=== PATIENT | male | born 1945 | race Caucasian/White ===

== ENCOUNTER → 2016-10-08 | Outpatient (CLI) | payer MEDICARE ==
[2016-10-08 11:19] LABS: Blood Urea Nitrogen 33 mg/dL (9-20); Non-African American GFR(MDRD) >60 (>60 ml/min/1.73 sqM)
--- NOTE | 2016-10-08 12:39 | CT ---
EXAMINATION TYPE: CT brain wo/w con DATE OF EXAM: 10/08/2016 12:01 PM COMPARISON: NONE HISTORY: Vision changes CT DLP: 2351 mGycm Automated Exposure Control for Dose Reduction was Utilized. TECHNIQUE: CT scan of the head is performed without and with without and with IV Contrast, patient in jected with 100 ml mL of Omnipaque 300. FINDINGS: Noncontrast images show no acute intracranial hemorrhage or midline shift. The ventricles and sulci are within normal limits in size. Postcontrast images show no suspicious enhancing intrapa renchymal mass. Suprasellar cistern is maintained. The globes are intact bilaterally. There are small mucous retention cysts or polyps in inferior bilateral maxillary sinuses, left greater than right. IMPRESSION: No significant finding is seen to account for patient's symptoms.
== END | disposition home or self-care (01) ==
LOC: RADCTMAIN 10:44
PROVIDERS: ATTEND Physician Assistant Medical
DX: H53.123 Transient visual loss, bilateral (principal)
CPT/HCPCS: 82565; 84520; 70470; 36415; Q9967

== ENCOUNTER → 2016-12-31 | Outpatient (CLI) | payer MEDICARE ==
--- NOTE | 2016-12-31 16:03 | XR ---
EXAMINATION TYPE: XR hand complete RT DATE OF EXAM: 12/31/2016 3:58 PM CLINICAL HISTORY: Infected laceration injury with pain and redness. TECHNIQUE: Frontal, lateral and oblique images of the right hand are obtained. COMPARISON: None. FINDINGS: There is no acute fracture/dislocation evident in the right hand. There is some joint spac e loss and mild spurring fifth PIP joint. There is mild spurring second and third metacarpophalangeal joints. Accessory sesamoids are present. There is old fracture deformity of ulnar styloid. The overl pat soft tissue appears unremarkable without radiodense foreign body seen. Soft tissue calcification volar surface proximal wrist is noted on lateral view. No suspicious cortical destruction or periost eal reaction is seen. IMPRESSION: There is no obvious suspicious radiodense soft tissue foreign body.
== END | disposition home or self-care (01) ==
LOC: RADXRMAIN 15:46
PROVIDERS: ATTEND Internal Medicine Critical Care Medicine
DX: S61.411A Laceration without foreign body of right hand, initial encounter (principal); X58.XXXA Exposure to other specified factors, initial encounter
CPT/HCPCS: 99213

== ENCOUNTER → 2019-03-14 | Outpatient (CLI) | payer MEDICARE ==
--- NOTE | 2019-03-14 13:57 | MR ---
EXAMINATION TYPE: MR lumbar spine wo/w con DATE OF EXAM: 03/14/2019 COMPARISON: 08/13/2015 HISTORY: Low back pain CONTRAST: 7.5 mL intravenous Gadavist. TECHNIQUE: Multiplanar, multisequence images of the lumbar spine were acquired. FINDINGS: Cord terminates at the L1 level. There is susceptibility artifact from L5-S1 pedicle screw s are evident. L5-S1: No significant disc bulge or disc herniation. No spinal canal stenosis. No foraminal stenosi s. L4-L5: Minimal disc bulge may be present with mild anterior thecal sac contact. No stenosis is presen t. No foraminal stenosis. L3-L4: Mild disc bulging is anterior thecal sac contact. No spinal canal stenosis. No foraminal rosina nosis. L2-L3: Mild disc bulging is anterior thecal sac contact. No spinal canal stenosis. No foraminal rosina nosis. L1-L2: No significant disc bulge or disc herniation. No spinal canal stenosis. No foraminal stenosi s. T12-L1: No significant disc bulge or disc herniation. No spinal canal stenosis. No foraminal stenos is. Neural foramen are patent.. No abnormal enhancement. No significant interval changes evident. IMPRESSION: 1. Mild disc bulging L4-5, L3-4, L2-3 with mild anterior thecal sac contact. No stenosis is evident. 2. Postsurgical changes L5-S1 right pedicle screws 3. Exam stable from 2014
== END | disposition home or self-care (01) ==
LOC: RADMRIMAIN 11:14
PROVIDERS: ATTEND Physical Medicine & Rehabilitation
DX: M51.26 Other intervertebral disc displacement, lumbar region (principal); Z98.890 Other specified postprocedural states
CPT/HCPCS: 72158; A9585

== ENCOUNTER 2019-03-27 10:10 | Day surgery (SDC) | payer MEDICARE ==
[2019-03-25 12:44] VITALS: BMI 25.0
[~2019-03-27 10:10] MED LIST: LACTATED RINGERS 1,000 ML IV SCH; LIDOCAINE 1% 20 ML VIAL (10MG/ML) FOR IV START INTRADERMA PRN
[2019-03-27 10:33] VITALS: TEMP 97.8
[2019-03-27] MEDS ORDERED: PROPOFOL 10 MG/ML 20 ML VIAL IV ONE (11:07)
--- NOTE | 2019-03-27 11:24 | P.PCN ---
Date of Procedure: 03/27/19 Procedure(s) Performed: BRIEF HISTORY: Patient is a 73-year-old pleasant white male, scheduled for an elective colonoscopy as a part of evaluation of prior history of colon polyps. Last colonoscopy was 5 years ago. PROCEDURE PERFORMED: Colonoscopy. PREOPERATIVE DIAGNOSIS: History of colon polyps. IV sedation per Anesthesia. PROCEDURE: After informed consent was obtained, the patient, was brought into the endoscopy unit. IV sedation was administered by Anesthesia under continuous monitoring. Digital rectal examination was normal. Initially the Olympus CF-160 flexible video colonoscope was then inserted in the rectum, gradually advanced into the cecum without any difficulty. Careful examination was performed as the scope was gradually being withdrawn. Ileocecal valve and the appendiceal orifice were visualized and appeared normal. Prep was excellent. Mucosa of the cecum, ascending colon, transverse colon, descending colon, sigmoid colon, and rectum appeared normal. Scattered sigmoid diverticulosis seen. Retroflexion was performed in the rectum and no lesions were seen. The patient tolerated the procedure well. IMPRESSION: Normal-appearing colon from rectum to cecum with no evidence of colorectal neoplasia. Scattered sigmoid diverticulosis. RECOMMENDATIONS: Findings of this examination were discussed with the patient as well as his family. He was advised to have a repeat surveillance colonoscopy in 5 years from now because of the prior history of colon polyps..
[2019-03-27 11:27] VITALS: RESP 16
[2019-03-27 11:41] VITALS: BP 119/65; PULSE 68
== END 2019-03-27 12:05 | disposition home or self-care (01) ==
LOC: ORWHC2ENDO 10:10
PROVIDERS: ATTEND Internal Medicine Gastroenterology
DX: Z12.11 Encounter for screening for malignant neoplasm of colon (principal); K57.30 Diverticulosis of large intestine without perforation or abscess without bleeding; N40.0 Benign prostatic hyperplasia without lower urinary tract symptoms; I10 Essential (primary) hypertension; Z86.010 Personal history of colon polyps; Z88.1 Allergy status to other antibiotic agents; Z79.899 Other long term (current) drug therapy
CPT/HCPCS: J2704; G0105; 45378

== ENCOUNTER 2019-10-20 08:09 | Observation (INO) | payer MEDICARE ==
[2019-10-20] MEDS ORDERED: KETOROLAC 30 MG/ML 1 ML VIAL IVP STA (08:32)
[2019-10-20] MEDS ORDERED: SODIUM CHLORIDE 0.9% 1,000 ML IV STA (08:32)
--- NOTE | 2019-10-20 08:35 | ED ---
General Adult HPI - General Source: patient, family, RN notes reviewed Mode of arrival: ambulatory <Ronnie Dunham - Last Filed: 10/20/19 11:10> <Julieta Figueroa - Last Filed: 10/22/19 19:31> - General Chief complaint: Abdominal Pain Stated complaint: right abdominal pain Time Seen by Provider: 10/20/19 08:21 - History of Present Illness Initial comments: 74-year-old male with a past medical history hypertension, prostate cancer presents to the emergency department for a chief complaint of abdominal pain. Patient states he has had right lower quadrant abdominal pain for the past 3 days. Patient states he thinks he could be constipated. States he normally has diarrhea but started taking a supplement for urinary retention and it made his stools harder. Patient states on Saturday he started to take magnesium citrate to try to have a bowel movement. States his last bowel movement was Saturday morning. Patient denies fevers or chills. Denies nausea vomiting but does admit to decreased appetite. States he has not been eating or drinking as much as normal.Patient has no other complaints at this time including shortness of breath, chest pain, nausea or vomiting, headache, or visual changes. (Ronnie Dunham) - Related Data Home Medications Medication Instructions Recorded Confirmed Ibuprofen [Motrin] 800 mg PO Q8H PRN 03/25/19 10/20/19 Losartan Potassium 100 mg PO DAILY 03/25/19 10/20/19 Hydrochlorothiazide [Hydrodiuril] 50 mg PO DAILY 10/20/19 10/20/19 Terazosin HCl 10 mg PO HS 10/20/19 10/20/19 Previous Rx's Medication Instructions Recorded Docusate [Colace] 100 mg PO BID #30 capsule 10/21/19 Hydrocodone/Acetaminophen [[place] 1 tab PO Q6HR PRN #10 tab 10/21/19 5-325] Allergies Allergy/AdvReac Type Severity Reaction Status Date / Time azithromycin Allergy Rash/Hives Verified 10/20/19 13:01 [From Zithromax Z-Dewayne] Review of Systems ROS Other: All systems not noted in ROS Statement are negative. <Ronnie Dunham - Last Filed: 10/20/19 11:10> ROS Other: All systems not noted in ROS Statement are negative. <Julieta Figueroa - Last Filed: 10/22/19 19:31> ROS Statement: Those systems with pertinent positive or pertinent negative responses have been documented in the HPI. Past Medical History Past Medical History: Hypertension, Prostate Disorder History of Any Multi-Drug Resistant Organisms: None Reported Past Surgical History: Back Surgery, Hernia Repair, Orthopedic Surgery Additional Past Surgical History / Comment(s): EPIDURAL SHOTS IN BACK AND NECK. COLONOSCOPY. REPAIR DETACHED RETINA > 10 YEARS AGO. LT FOOT SX Past Anesthesia/Blood Transfusion Reactions: No Reported Reaction Past Psychological History: No Psychological Hx Reported Smoking Status: Former smoker - Past Family History Mother Family Medical History: No Reported History <Ronnie Dunham P - Last Filed: 10/20/19 11:10> General Exam General appearance: alert, in no apparent distress Head exam: Present: atraumatic, normocephalic, normal inspection Eye exam: Present: normal appearance, PERRL, EOMI. Absent: scleral icterus, conjunctival injection, periorbital swelling ENT exam: Present: normal exam, mucous membranes moist Neck exam: Present: normal inspection, full ROM. Absent: tenderness, meningismus, lymphadenopathy Respiratory exam: Present: normal lung sounds bilaterally. Absent: respiratory distress, wheezes, rales, rhonchi, stridor Cardiovascular Exam: Present: regular rate, normal rhythm, normal heart sounds. Absent: systolic murmur, diastolic murmur, rubs, gallop, clicks GI/Abdominal exam: Present: soft, tenderness (Right lower quadrant abdominal tenderness. No significant left sided abdominal tenderness. No epigastric or right upper quadrant tenderness.), normal bowel sounds. Absent: distended, guarding, rebound, rigid <Ronnie Dunham P - Last Filed: 10/20/19 11:10> Course Vital Signs 10/20/19 10/20/19 10/20/19 08:18 08:54 09:00 Temperature 97.9 F Pulse Rate 87 70 69 Respiratory 16 18 18 Rate Blood Pressure 126/74 136/76 136/76 O2 Sat by Pulse 97 93 L 96 Oximetry 10/20/19 10/20/19 10/20/19 09:30 10:00 10:30 Temperature Pulse Rate 67 68 70 Respiratory 18 18 18 Rate Blood Pressure 131/75 129/81 142/77 O2 Sat by Pulse 96 98 97 Oximetry Medical Decision Making - Lab Data Result diagrams: 10/20/19 08:39 10/20/19 08:39 <Ronnie Dunham - Last Filed: 10/20/19 11:10> - Lab Data Result diagrams: 10/20/19 08:39 10/20/19 08:39 <Julieta Figueroa - Last Filed: 10/22/19 19:31> - Medical Decision Making Vitals are stable. Patient is afebrile. CBC does show a leukocytosis of 11.6. Left shift. CMP unremarkable however there is mild hyponatremia noted. Patient given normal saline. CT was obtained with contrast which does show a thickened appendix. Findings compatible with acute or possibly subacute appendicitis. There are also incidental findings of 5.5 cm cyst on the left kidney. Patient and his are requesting to see Dr. Myers specifically. Dr. Sebastian did speak with Dr. Myers who does except this consult. He requests Zosyn and nothing by mouth diet. (Ronnie Dunham) I was available for consultation in the emergency department. The history and physical exam were done by the midlevel provider. I was consulted for this patients care. I reviewed the case with the midlevel provider and based on their presentation of the patient, I agree with the assessment, medical decision making and plan of care as documented. I evaluated the patient myself. He presents with rlq pain and tenderness on exam. Ct demonstrates appendicitis. Patient requesting Dr. myers. I called Dr. myers who accepted the consult. Patient made NPO and placed on antibiotics. He is awaiting surgery this afternoon. Chart was dictated using [employer] dictation software. Attempts were made to correct any dictation errors however some typographical errors may persist. (Julieta Figueroa) - Lab Data Lab Results 10/20/19 10/20/19 10/20/19 Range/Units 08:39 08:39 08:39 WBC 11.6 H (3.8-10.6) k/uL RBC 4.24 L (4.30-5.90) m/uL Hgb 13.9 (13.0-17.5) gm/dL Hct 39.4 (39.0-53.0) % MCV 92.7 (80.0-100.0) fL MCH 32.6 (25.0-35.0) pg MCHC 35.2 (31.0-37.0) g/dL RDW 11.8 (11.5-15.5) % Plt Count 180 (150-450) k/uL Neutrophils % 85 % Lymphocytes % 9 % Monocytes % 4 % Eosinophils % 1 % Basophils % 0 % Neutrophils # 9.9 H (1.3-7.7) k/uL Lymphocytes # 1.0 (1.0-4.8) k/uL Monocytes # 0.5 (0-1.0) k/uL Eosinophils # 0.1 (0-0.7) k/uL Basophils # 0.0 (0-0.2) k/uL Sodium 131 L (137-145) mmol/L Potassium 3.7 (3.5-5.1) mmol/L Chloride 95 L (98-107) mmol/L Carbon Dioxide 28 (22-30) mmol/L Anion Gap 8 mmol/L BUN 17 (9-20) mg/dL Creatinine 0.95 (0.66-1.25) mg/dL Est GFR (CKD-EPI)AfAm >90 (>60 ml/min/1.73 sqM) Est GFR (CKD-EPI)NonAf 78 (>60 ml/min/1.73 sqM) Glucose 121 H (74-99) mg/dL Plasma Lactic Acid Mahin 1.2 (0.7-2.0) mmol/L Calcium 9.2 (8.4-10.2) mg/dL Total Bilirubin 1.6 H (0.2-1.3) mg/dL AST 27 (17-59) U/L ALT 17 (4-49) U/L Alkaline Phosphatase 74 (38-126) U/L Total Protein 6.6 (6.3-8.2) g/dL Albumin 4.1 (3.5-5.0) g/dL Amylase 72 (30-110) U/L Lipase 135 (23-300) U/L Urine Color Urine Appearance (Clear) Urine pH (5.0-8.0) Ur Specific [place] (1.001-1.035) Urine Protein (Negative) Urine Glucose (UA) (Negative) Urine Ketones (Negative) Urine Blood (Negative) Urine Nitrite (Negative) Urine Bilirubin (Negative) Urine Urobilinogen (<2.0) mg/dL Ur Leukocyte Esterase (Negative) 10/20/19 Range/Units 08:39 WBC (3.8-10.6) k/uL RBC (4.30-5.90) m/uL Hgb (13.0-17.5) gm/dL Hct (39.0-53.0) % MCV (80.0-100.0) fL MCH (25.0-35.0) pg MCHC (31.0-37.0) g/dL RDW (11.5-15.5) % Plt Count (150-450) k/uL Neutrophils % % Lymphocytes % % Monocytes % % Eosinophils % % Basophils % % Neutrophils # (1.3-7.7) k/uL Lymphocytes # (1.0-4.8) k/uL Monocytes # (0-1.0) k/uL Eosinophils # (0-0.7) k/uL Basophils # (0-0.2) k/uL Sodium (137-145) mmol/L Potassium (3.5-5.1) mmol/L Chloride (98-107) mmol/L Carbon Dioxide (22-30) mmol/L Anion Gap mmol/L BUN (9-20) mg/dL Creatinine (0.66-1.25) mg/dL Est GFR (CKD-EPI)AfAm (>60 ml/min/1.73 sqM) Est GFR (CKD-EPI)NonAf (>60 ml/min/1.73 sqM) Glucose (74-99) mg/dL Plasma Lactic Acid Mahin (0.7-2.0) mmol/L Calcium (8.4-10.2) mg/dL Total Bilirubin (0.2-1.3) mg/dL AST (17-59) U/L ALT (4-49) U/L Alkaline Phosphatase (38-126) U/L Total Protein (6.3-8.2) g/dL Albumin (3.5-5.0) g/dL Amylase (30-110) U/L Lipase (23-300) U/L Urine Color Yellow Urine Appearance Clear (Clear) Urine pH 8.0 (5.0-8.0) Ur Specific [place] 1.005 (1.001-1.035) Urine Protein Negative (Negative) Urine Glucose (UA) Negative (Negative) Urine Ketones Negative (Negative) Urine Blood Negative (Negative) Urine Nitrite Negative (Negative) Urine Bilirubin Negative (Negative) Urine Urobilinogen <2.0 (<2.0) mg/dL Ur Leukocyte Esterase Negative (Negative) Disposition Is patient prescribed a controlled substance at d/c from ED?: No Time of Disposition: 11:10 <Ronnie Dunham P - Last Filed: 10/20/19 11:10> <Julieta Figueroa - Last Filed: 10/22/19 19:31> Clinical Impression: Appendicitis Disposition: ADMITTED IP TO THIS HOSP Condition: Stable
[2019-10-20 09:06] LABS: Appearance,Urine Clear (Clear); Color,Urine Yellow; Glucose,Urine (UA) Negative (Negative); Ketones,Urine Negative (Negative); Protein,Urine Negative (Negative); Specific Gravity,Urine 1.005 (1.001-1.035)
[2019-10-20 09:07] LABS: Bilirubin,Urine Negative (Negative); Blood,Urine Negative (Negative); Leukocyte Esterase,Urine Negative (Negative); Nitrite,Urine Negative (Negative); Urobilinogen,Urine <2.0 mg/dL (<2.0)
[2019-10-20 09:25] LABS: Basophils % (A) 0 %; Eosinophils # (A) 0.1 k/uL (0-0.7); Eosinophils % (A) 1 %; HCT 39.4 % (39.0-53.0); HGB 13.9 gm/dL (13.0-17.5); Lymphocytes % (A) 9 %; MCH 32.6 pg (25.0-35.0); MCHC 35.2 g/dL (31.0-37.0); MCV 92.7 fL (80.0-100.0); Mean Platelet Volume 6.7; Monocytes # (A) 0.5 k/uL (0-1.0); Monocytes % (A) 4 %; Neutrophils # (A) 9.9 k/uL (1.3-7.7); Neutrophils % (A) 85 %; Platelet Count 180 k/uL (150-450); RBC 4.24 m/uL (4.30-5.90); RDW 11.8 % (11.5-15.5); WBC 11.6 k/uL (3.8-10.6)
[2019-10-20 09:28] LABS: ALT 17 U/L (4-49); AST 27 U/L (17-59); African American GFR (CKD) >90 (>60 ml/min/1.73 sqM); Albumin 4.1 g/dL (3.5-5.0); Alkaline Phosphatase 74 U/L (38-126); Amylase 72 U/L (30-110); Anion Gap 8 mmol/L; Blood Urea Nitrogen 17 mg/dL (9-20); Calcium 9.2 mg/dL (8.4-10.2); Carbon Dioxide 28 mmol/L (22-30); Chloride 95 mmol/L (98-107); Glucose 121 mg/dL (74-99); Non-African American GFR(CKD) 78 (>60 ml/min/1.73 sqM); Potassium 3.7 mmol/L (3.5-5.1); Sodium 131 mmol/L (137-145); Total Bilirubin 1.6 mg/dL (0.2-1.3); Total Protein 6.6 g/dL (6.3-8.2)
--- NOTE | 2019-10-20 10:10 | CT ---
EXAMINATION TYPE: CT abdomen pelvis w con DATE OF EXAM: 10/20/2019 COMPARISON: None HISTORY: RLQ pain CT DLP: 1068.3 mGycm Automated exposure control for dose reduction was used. TECHNIQUE: Helical acquisition of images from the lung bases through the pelvis have been completed. CONTRAST: Performed without Oral Contrast and with IV Contrast, patient injected with 100 mL of Isovue 300. FINDINGS: There are coronary calcifications present. LUNG BASES: Some minimal subsegmental basilar atelectatic changes or scarring present at the lung bas es. AORTA: No significant abnormality is appreciated. LIVER/GB: No significant abnormality is appreciated. PANCREAS: No significant abnormality is seen. SPLEEN: No significant abnormality is seen. ADRENALS: No significant abnormality is seen. KIDNEYS: Left kidney shows an associated cystic focus measuring 5.5 cm, smaller cystic foci present b ilaterally, posteriorly on the left measuring 1 cm and posteriorly on the right mid pole measuring 9 mm. No hydronephrosis or ureteral calcification. REPRODUCTIVE ORGANS: The prostate is enlarged. BOWEL: The appendix shows a thickened appearance, there is some central high density compatible with appendicolith on axial image 37, there is some periappendiceal inflammatory change. Diverticular eduin nge present in the sigmoid colon. FREE AIR: No Free Air visible. ASCITES: None visible. PELVIC ADENOPATHY: None visualized. RETROPERITONEAL ADENOPATHY: No Retroperitoneal Adenopathy visible. URINARY BLADDER: No significant abnormality is seen. OSSEOUS STRUCTURES: There is some osteoarthritic change present within the hips. Postop changes are noted at the lumbosacral junction. Degenerative disc changes are present in the visualized spine. IMPRESSION: FINDINGS COMPATIBLE WITH ACUTE OR POSSIBLY SUBACUTE APPENDICITIS.
[2019-10-20] MEDS ORDERED: MORPHINE SULFATE 4 MG/ML SYRINGE IV PRN (11:11)
[2019-10-20] MEDS ORDERED: ONDANSETRON 4 MG/2 ML VIAL IVP PRN (11:11)
[2019-10-20] MEDS ORDERED: NALOXONE 0.4 MG/ML 1 ML VIAL IV PRN (11:11)
[2019-10-20] MEDS ORDERED: PIPERACILLIN-TAZOBACTAM 3.375 GM in SODIUM CHLORIDE 0.9% 100 ML IVPB STA (11:13)
[2019-10-20] MEDS: SODIUM CHLORIDE 0.9% 1,000 ML IV SCH ×2 (11:44→20:30)
[2019-10-20] MEDS ORDERED: IV FLUID CONTINUATION 1,000 ML IV ONE (12:51)
[2019-10-20] MEDS ORDERED: BUPIVACAINE (PF) 0.25% 30 ML VIAL SQ ONE ×3 (13:25→14:32)
[2019-10-20] MEDS ORDERED: ONDANSETRON 4 MG/2 ML VIAL IVP ONE (13:28)
[2019-10-20] MEDS ORDERED: DEXAMETHASONE SOD PHOSPHATE 10 MG/ML 1 ML VIAL IV ONE (13:28)
[2019-10-20] MEDS ORDERED: NEOSTIGMINE 1 MG/ML 10 ML VIAL ONE (14:04)
[2019-10-20] MEDS ORDERED: LIDOCAINE 1% INJ 10MG/ML (20 ML MDV) ONE (14:04)
[2019-10-20] MEDS ORDERED: ePHEDrine SULFATE/0.9% NACL/PF 50 MG/5 ML SYRINGE IV ONE (14:04)
[2019-10-20] MEDS ORDERED: SUCCINYLCHOLINE CHLORIDE 100 MG/5 ML SYR IV ONE (14:04)
[2019-10-20] MEDS ORDERED: GLYCOPYRROLATE 0.2 MG/ML 2 ML VIAL ONE (14:04)
[2019-10-20] MEDS ORDERED: MIDAZOLAM 2 MG/2 ML VIAL ONE (14:04)
[2019-10-20] MEDS ORDERED: fentaNYL (PF) 50 MCG/ML 2 ML AMP ONE (14:04)
[2019-10-20] MEDS ORDERED: PROPOFOL 10 MG/ML 20 ML VIAL IV ONE (14:04)
[2019-10-20] MEDS ORDERED: ROCURONIUM BROMIDE 10 MG/ML 5 ML VIAL IV ONE (14:04)
[2019-10-20] MEDS ORDERED: HEPARIN SODIUM,PORCINE 5,000 UNIT/ML 1 ML VIAL SQ ONE (14:05)
--- NOTE | 2019-10-20 14:07 | P.GSHP ---
History of Present Illness H&P Date: 10/20/19 Chief Complaint: Acute appendicitis 74-year-old male comes in the hospital complaining of abdominal pain for the last 2-3 days. Pain lower abdomen slightly to the right. No fevers. Mild nausea. Decreased bowel function. No history of similar events. Patient underwent CAT scan which shows inflammatory changes around the appendix. White blood cell count 11.6. - Review of Systems Comment: The patient denies any acute changes in vision or hearing, no dysphagia or odynophagia, no chest pain or shortness of breath, no dysuria or hematuria, no headache, no runny nose, no rectal bleeding or melena, no unexplained weight loss Past Medical History Past Medical History: Hypertension, Prostate Disorder History of Any Multi-Drug Resistant Organisms: None Reported Past Surgical History: Back Surgery, Hernia Repair, Orthopedic Surgery Additional Past Surgical History / Comment(s): EPIDURAL SHOTS IN BACK AND NECK. COLONOSCOPY. REPAIR DETACHED RETINA > 10 YEARS AGO. LT FOOT SX Past Anesthesia/Blood Transfusion Reactions: No Reported Reaction Past Psychological History: No Psychological Hx Reported Smoking Status: Former smoker - Past Family History Mother Family Medical History: No Reported History Medications and Allergies Home Medications Medication Instructions Recorded Confirmed Type Ibuprofen [Motrin] 800 mg PO Q8H PRN 03/25/19 10/20/19 History Losartan Potassium 100 mg PO DAILY 03/25/19 10/20/19 History Hydrochlorothiazide [Hydrodiuril] 50 mg PO DAILY 10/20/19 10/20/19 History Terazosin HCl 10 mg PO HS 10/20/19 10/20/19 History Allergies Allergy/AdvReac Type Severity Reaction Status Date / Time azithromycin Allergy Rash/Hives Verified 10/20/19 13:01 [From Zithromax Z-Dewayne] Surgical - Exam Vital Signs Temp Pulse Resp BP Pulse Ox 97.9 F 87 16 126/74 97 10/20/19 08:18 10/20/19 08:18 10/20/19 08:18 10/20/19 08:18 10/20/19 08:18 Physical exam: General: Well-developed, well-nourished HEENT: Normocephalic, sclerae nonicteric Abdomen: Right mid abdominal tenderness without rebound or guarding, nondistended Extremities: No edema Neuro: Alert and oriented Results - Labs 10/20/19 08:39 10/20/19 08:39 Abnormal Lab Results - Last 24 Hours (Table) 10/20/19 10/20/19 Range/Units 08:39 08:39 WBC 11.6 H (3.8-10.6) k/uL RBC 4.24 L (4.30-5.90) m/uL Neutrophils # 9.9 H (1.3-7.7) k/uL Sodium 131 L (137-145) mmol/L Chloride 95 L (98-107) mmol/L Glucose 121 H (74-99) mg/dL Total Bilirubin 1.6 H (0.2-1.3) mg/dL Diabetes panel 10/20/19 Range/Units 08:39 Sodium 131 L (137-145) mmol/L Potassium 3.7 (3.5-5.1) mmol/L Chloride 95 L (98-107) mmol/L Carbon Dioxide 28 (22-30) mmol/L BUN 17 (9-20) mg/dL Creatinine 0.95 (0.66-1.25) mg/dL Glucose 121 H (74-99) mg/dL Calcium 9.2 (8.4-10.2) mg/dL AST 27 (17-59) U/L ALT 17 (4-49) U/L Alkaline Phosphatase 74 (38-126) U/L Total Protein 6.6 (6.3-8.2) g/dL Albumin 4.1 (3.5-5.0) g/dL Calcium panel 10/20/19 Range/Units 08:39 Calcium 9.2 (8.4-10.2) mg/dL Albumin 4.1 (3.5-5.0) g/dL Pituitary panel 10/20/19 Range/Units 08:39 Sodium 131 L (137-145) mmol/L Potassium 3.7 (3.5-5.1) mmol/L Chloride 95 L (98-107) mmol/L Carbon Dioxide 28 (22-30) mmol/L BUN 17 (9-20) mg/dL Creatinine 0.95 (0.66-1.25) mg/dL Glucose 121 H (74-99) mg/dL Calcium 9.2 (8.4-10.2) mg/dL Adrenal panel 10/20/19 Range/Units 08:39 Sodium 131 L (137-145) mmol/L Potassium 3.7 (3.5-5.1) mmol/L Chloride 95 L (98-107) mmol/L Carbon Dioxide 28 (22-30) mmol/L BUN 17 (9-20) mg/dL Creatinine 0.95 (0.66-1.25) mg/dL Glucose 121 H (74-99) mg/dL Calcium 9.2 (8.4-10.2) mg/dL Total Bilirubin 1.6 H (0.2-1.3) mg/dL AST 27 (17-59) U/L ALT 17 (4-49) U/L Alkaline Phosphatase 74 (38-126) U/L Total Protein 6.6 (6.3-8.2) g/dL Albumin 4.1 (3.5-5.0) g/dL Assessment and Plan (1) Appendicitis Narrative/Plan: 74-year-old male with acute appendicitis by CAT scan and by history. We'll proc eed with laparoscopic, possible open appendectomy at this time. Risks of bleeding, infection, bladder and bowel injury, trocar injury, conversion to an open procedure, hernia, anesthesia related complications were reviewed. The patient understands and wishes to proceed. Current Visit: Yes Status: Acute Code(s): K37 - UNSPECIFIED APPENDICITIS SNOMED Code(s): 38260984
[2019-10-20] MEDS ORDERED: KETOROLAC 30 MG/ML 1 ML VIAL IVP ONE (15:08)
[2019-10-20] MEDS ORDERED: HYDROmorphone 1 MG/ML 1 ML SYRINGE IVP PRN (15:15)
[2019-10-20] MEDS ORDERED: HYDROcodone/APAP 5-325MG 1 EACH TAB PO PRN (15:15)
--- NOTE | 2019-10-20 15:29 | P.OP ---
Date of Procedure: 10/20/19 Procedure(s) Performed: PREOPERATIVE DIAGNOSIS: Acute appendicitis POSTOPERATIVE DIAGNOSIS: Same PROCEDURE: Laparoscopic appendectomy SURGEON: Dontrell EBL: 10 mL ANESTHESIA: General COMPLICATIONS: None OPERATIVE PROCEDURE: The patient was brought and placed on the operating table in the supine position. The patient was placed under general anesthesia. The abdomen was prepped and draped in the usual sterile fashion. A small vertical infraumbilical incision was made. The fascia was retracted anteriorly with Juan Alberto forceps. The Veress needle was advanced into the peritoneal cavity. The saline drop test was normal. Insufflation took place to 15 mmHg. A 5 mm trocar was then placed. An additional 5 mm suprapubic trocar was placed under direct visualization as well as a 12 mm left lower quadrant trocar under direct visualization. The appendix was inspected. It was acutely inflamed. The mesoappendix was dissected. The base of the appendix was divided using a linear 45 mm intestinal stapler. The mesentery itself was divided using the LigaSure. The area was then irrigated. No further purulence or bleeding was seen. The appendix was brought out of the peritoneal cavity through the left lower quadrant trocar site with an Endo Catch bag. The fascia at the 12 mm site was closed using a [id number] 0 Vicryl stitch. The skin at all 3 sites was closed using 4-0 Monocryl sutures. Skin glue was then applied. DISPOSITION: Stable to recovery room
[2019-10-20] MEDS: HEPARIN SODIUM,PORCINE 5,000 UNIT/ML 1 ML VIAL SQ SCH (18:16)
--- NOTE | 2019-10-20 19:05 | P.CONS ---
History of Present Illness - Reason for Consult Consult date: 10/20/19 Medical management Requesting physician: Carroll Jon - Chief Complaint Appendicitis - History of Present Illness 74-year-old male with PMH of hypertension presents the ED for abdominal pain. CT abdomen pelvis shows findings compatible with acute or subacute appendicitis. He was taken to the OR. Patient underwent lap scopic appendectomy. He was seen and examined after his procedure. Patient reports well-controlled abdominal pain. He has no other complaints at t his time. Patient has not tried urinating. He denies any bowel movement post surgery but admits to passing gas. He denies any headache, lower extremity edema, nausea or vomiting, fever or chills, cough, chest pain, shortness of breath, palpitations, changes in urination or bowel habits. No changes in appetite or weight. No dizziness, numbness/weakness/tingling of the extremities. Review of Systems Pertinent positives and negatives as discussed in HPI, a complete review of systems was performed and all other systems are negative. Past Medical History Past Medical History: Hypertension, Prostate Disorder History of Any Multi-Drug Resistant Organisms: None Reported Past Surgical History: Appendectomy, Back Surgery, Hernia Repair, Orthopedic Surgery Additional Past Surgical History / Comment(s): EPIDURAL SHOTS IN BACK AND NECK. COLONOSCOPY. REPAIR DETACHED RETINA > 10 YEARS AGO. LT FOOT SX Past Anesthesia/Blood Transfusion Reactions: No Reported Reaction Past Psychological History: No Psychological Hx Reported Smoking Status: Former smoker Additional Past Alcohol Use History / Comment(s): QUIT SMOKING 30 YEARS AGO Past Drug Use History: None Reported - Past Family History Mother History Unknown: Yes Family Medical History: No Reported History Additional Family Medical History / Comment(s): heart disease Father History Unknown: Yes Family Medical History: Diabetes Mellitus Additional Family Medical History / Comment(s): at 51 from complications of diabetes Medications and Allergies Home Medications Medication Instructions Recorded Confirmed Type Ibuprofen [Motrin] 800 mg PO Q8H PRN 03/25/19 10/20/19 History Losartan Potassium 100 mg PO DAILY 03/25/19 10/20/19 History Hydrochlorothiazide [Hydrodiuril] 50 mg PO DAILY 10/20/19 10/20/19 History Terazosin HCl 10 mg PO HS 10/20/19 10/20/19 History Allergies Allergy/AdvReac Type Severity Reaction Status Date / Time azithromycin Allergy Rash/Hives Verified 10/20/19 13:01 [From Zithromax Z-Dewayne] Physical Exam Vitals: Vital Signs Temp Pulse Pulse Resp BP BP Pulse Ox 10/20/19 16:15 98.0 F 62 16 134/71 96 10/20/19 15:30 70 16 123/77 96 10/20/19 15:15 72 16 147/81 97 10/20/19 15:05 99.2 F 78 16 145/70 98 10/20/19 13:08 98.2 F 68 16 155/78 100 10/20/19 12:48 97.3 F L 70 18 135/77 98 10/20/19 10:30 70 18 142/77 97 10/20/19 10:00 68 18 129/81 98 10/20/19 09:30 67 18 131/75 96 10/20/19 09:00 69 18 136/76 96 10/20/19 08:54 70 18 136/76 93 L 10/20/19 08:18 97.9 F 87 16 126/74 97 Intake and Output 10/20/19 10/20/19 10/20/19 06:59 14:59 22:59 Intake Total 800 50 Output Total 5 Balance 795 50 Intake: IV 800 50 Output: Estimated Blood Loss 5 Other: Weight 74.843 kg 74.843 kg General: [non toxic], [no distress], [appears at stated age] Derm: [warm], [dry] Head: [atraumatic], [normocephalic], [symmetric] Eyes: [EOMI], [no lid lag], [anicteric sclera] Mouth: [no lip lesion], [mucus membranes moist] Cardiovascular: [S1S2 reg], [no murmur], [positive posterior tibial pulse bilateral], Lungs: [CTA bilateral], [no rhonchi, no rales] , [no accessory muscle use] Abdominal: [soft], [ nontender to palpation], [no guarding], [no appreciable organomegaly], [laparoscopic scars intact] Ext: [no gross muscle atrophy], [no edema], [no contractures] Neuro: [ CN II-XI grossly intact], [no focal neuro deficits] Psych: [Alert], [oriented], [appropriate affect] Results CBC & Chem 7: 10/20/19 08:39 10/20/19 08:39 Labs: Abnormal Lab Results - Last 24 Hours (Table) 10/20/19 10/20/19 Range/Units 08:39 08:39 WBC 11.6 H (3.8-10.6) k/uL RBC 4.24 L (4.30-5.90) m/uL Neutrophils # 9.9 H (1.3-7.7) k/uL Sodium 131 L (137-145) mmol/L Chloride 95 L (98-107) mmol/L Glucose 121 H (74-99) mg/dL Total Bilirubin 1.6 H (0.2-1.3) mg/dL Assessment and Plan Assessment: Hypertension Leukocytosis Hyponatremia Acute appendicitis post laparoscopic appendectomy BP 134/71. Plans: Continue losartan and hydrochlorothiazide. Monitor vitals, adjust medications as necessary. Likely due to appendicitis. Plans: Continue Zosyn. Repeat CBC tomorrow morning. Sodium 131. Unknown etiology. Possibly hypovolemic. Plans: Continue normal saline at 120 mL per hour. Repeat BMP tomorrow morning. Plans: Management as per surgery. [Patient admitted for acute appendicitis post laparoscopic appendectomy. On IV antibiotics. He is pending clinical improvement. Surgery on board. Likely DC in 1-2 days.]
[2019-10-20] MEDS: PIPERACILLIN-TAZOBACTAM 3.375 GM in SODIUM CHLORIDE 0.9% 100 ML IVPB SCH (20:29)
[2019-10-20] MEDS: DOCUSATE 100 MG CAP PO SCH (20:32)
[2019-10-20] MEDS ORDERED: DOXAZOSIN 4 MG TAB PO SCH (21:00)
[2019-10-20 23:15] VITALS: RESP 17
[2019-10-21] MEDS: HEPARIN SODIUM,PORCINE 5,000 UNIT/ML 1 ML VIAL SQ SCH ×2 (00:43→08:48)
[2019-10-21] MEDS: PIPERACILLIN-TAZOBACTAM 3.375 GM in SODIUM CHLORIDE 0.9% 100 ML IVPB SCH ×2 (05:13→11:16)
[2019-10-21] MEDS: SODIUM CHLORIDE 0.9% 1,000 ML IV SCH ×2 (05:13→11:16)
[2019-10-21 07:14] VITALS: BP 138/69; PULSE 65; TEMP 97.9
[2019-10-21] MEDS: DOCUSATE 100 MG CAP PO SCH (08:48)
[2019-10-21] MEDS ORDERED: PANTOPRAZOLE 40 MG/10 ML VIAL IV SCH (09:00)
[2019-10-21] MEDS ORDERED: HYDROCHLOROTHIAZIDE 50 MG TAB PO SCH (09:00)
[2019-10-21] MEDS ORDERED: LOSARTAN 50 MG TAB PO SCH (09:00)
--- NOTE | 2019-10-21 10:16 | P.DS ---
<NanNomanShasta A - Last Filed: 10/21/19 10:13> Providers Expected date of discharge: 10/21/19 Hospital Course: 74-year-old male who presented to the emergency room with a chief complaint of abdominal pain. Patient was found to have acute appendicitis. Patient underwent laparoscopic appendectomy with Dr. Jon on 10/20/2019. Patient is doing well postoperatively without any immediate complications. He is tolerating diet without nausea or vomiting. Pain is controlled on oral me dications. Vital signs are stable. He is stable for discharge home today. Please see EMR for further hospital course details. Discharge Diagnosis 1. Abdominal pain 2. Acute appendicitis Nurse practitioner note has been reviewed by physician. Signing provider agrees with the documented findings, assessment, and plan of care. Patient Condition at Discharge: Stable Plan - Discharge Summary Discharge Rx Participant: Yes New Discharge Prescriptions: New Hydrocodone/Acetaminophen [[place] 5-325] 1 tab PO Q6HR PRN #10 tab PRN Reason: Pain Docusate [Colace] 100 mg PO BID #30 capsule Continue Losartan Potassium 100 mg PO DAILY Ibuprofen [Motrin] 800 mg PO Q8H PRN PRN Reason: Pain Hydrochlorothiazide [Hydrodiuril] 50 mg PO DAILY Terazosin HCl 10 mg PO HS Discharge Medication List Ibuprofen [Motrin] 800 mg PO Q8H PRN 03/25/19 [History] Losartan Potassium 100 mg PO DAILY 03/25/19 [History] Hydrochlorothiazide [Hydrodiuril] 50 mg PO DAILY 10/20/19 [History] Terazosin HCl 10 mg PO HS 10/20/19 [History] Docusate [Colace] 100 mg PO BID #30 capsule 10/21/19 [Rx] Hydrocodone/Acetaminophen [[place] 5-325] 1 tab PO Q6HR PRN #10 tab 10/21/19 [Rx] Follow up Appointment(s)/Referral(s): Carroll Jon MD [Medical Doctor] - 10/29/19 10:40 am Dago Mg MD [Primary Care Provider] - 11/04/19 2:00 pm Activity/Diet/Wound Care/Special Instructions: No driving while taking [place] No lifting over 10 pounds You may shower. No soaking or tub baths Very light activity until you are reevaluated at your follow up appointment with your surgeon <Carroll Jon - Last Filed: 10/21/19 11:55> Providers Date of admission: 10/20/19 11:16 Attending physician: Carroll Jon Consults: 10/20/19 16:48 Consult Physician Routine Consulting Provider: Gifty Live Consult Reason/Comments: med mgtm Do you want consulting provider notified?: Yes Primary care physician: Dago Mg - Discharge Diagnosis(es) (1) Appendicitis Current Visit: Yes Status: Acute Hospital Course: As above. Patient doing well post-appendectomy. Switch over to oral pain meds. Anticipate probable discharge later today. Follow-up in 1 week.
--- NOTE | 2019-10-21 10:40 | P.PN ---
Subjective Progress Note Date: 10/21/19 Principal diagnosis: Medical management Patient was seen and examined. No acute events overnight. Urinating fine. No bowel movement but passing gas. Tolerating regular diet well. He denies any chest pressure, shortness breath or palpitations. Complains of mild discomfort at the site of incision. Objective - Vital Signs Vital signs: Vital Signs Temp 97.9 F 10/21/19 05:20 Pulse 65 10/21/19 05:20 Resp 17 10/21/19 05:20 BP 138/69 10/21/19 05:20 Pulse Ox 98 10/21/19 05:20 Intake & Output 10/20/19 10/21/19 10/21/19 18:59 06:59 18:59 Intake Total 850 200 Output Total 5 Balance 845 200 Weight 74.843 kg Intake: IV 850 Oral 200 Output: Estimated Blood Loss 5 Other: # Voids 1 - Exam General: [non toxic], [no distress], [appears at stated age] Derm: [warm], [dry] Head: [atraumatic], [normocephalic], [symmetric] Eyes: [EOMI], [no lid lag], [anicteric sclera] Mouth: [no lip lesion], [mucus membranes moist] Cardiovascular: [S1S2 reg], [no murmur], [positive posterior tibial pulse bilateral], Lungs: [CTA bilateral], [no rhonchi, no rales] , [no accessory muscle use] Abdominal: [soft], [ nontender to palpation], [no guarding], [no appreciable organomegaly], [laparoscopic scars intact] Ext: [no gross muscle atrophy], [no edema], [no contractures] Neuro: [no focal neuro deficits] Psych: [Alert], [oriented], [appropriate affect] - Labs CBC & Chem 7: 10/20/19 08:39 10/20/19 08:39 Assessment and Plan Assessment: Hypertension Leukocytosis Hyponatremia Acute appendicitis post laparoscopic appendectomy BP 138/69. Plans: Continue losartan and hydrochlorothiazide. Monitor vitals, adjust medications as necessary. Likely due to appendicitis. Plans: Likely reactive. Patient should get follow- up CBC with PCP. Sodium 131. Unknown etiology. Possibly hypovolemic. Plans: Continue normal saline at 120 mL per hour. Encourage hydration by mouth. Patient symptomatic. Patient should have follow-up BMP with PCP. Plans: Management as per surgery. [Patient admitted for acute appendicitis post laparoscopic appendectomy. Tolerating diet well. Plans were DC this afternoon.]
== END 2019-10-21 15:01 | disposition home or self-care (01) ==
LOC: EC 08:09 → 6NMEDSUR 11:16
PROVIDERS: ADMIT Surgery; ATTEND Surgery
DX: K35.80 Unspecified acute appendicitis (principal); I10 Essential (primary) hypertension; R33.9 Retention of urine, unspecified; E87.1 Hypo-osmolality and hyponatremia; N40.0 Benign prostatic hyperplasia without lower urinary tract symptoms; Z85.46 Personal history of malignant neoplasm of prostate; Z79.899 Other long term (current) drug therapy; Z88.1 Allergy status to other antibiotic agents; Z98.890 Other specified postprocedural states; Z86.69 Personal history of other diseases of the nervous system and sense organs; Z87.891 Personal history of nicotine dependence; Z82.49 Family history of ischemic heart disease and other diseases of the circulatory system; Z83.3 Family history of diabetes mellitus
CPT/HCPCS: 96361; 96374; 99285; 36415; 88304; 80053; 82150; 83605; 83690; 85025; 81003; 87040; 74177; 44970; G0378 ×2; J2543 ×2; J2250; J2270; J1644 ×2; J1100; J2710; J2405; J2001; J3010; J1885; J0330; J2704; C9113; Q9967